=== PATIENT | male | born 1950 | race Caucasian/White ===

== ENCOUNTER 2017-08-10 10:41 | Emergency (ER) | payer MEDICARE ==
[2017-08-10 10:54] VITALS: BP 190/92
--- NOTE | 2017-08-10 11:21 | UC ---
Skin Complaint HPI - HPI Summary HPI Summary: Patient is a 67-year-old male presents to the with a complaint of a bleeding skin growth. He was seen by his primary and an x-ray was obtained to look for any skull involvement. [facility]5 [facility]. However, he states in the shower this morning he noticed more bleeding and when he tried to clean the area, he noticed several maggots on the cloth. He attempted to clean out the maggots, but stated there were too many. Denies any headaches. He is unsure what the growth is from and is to have a biopsy when he will see [facility]. - History of Current Complaint Chief Complaint: UCGeneralIllness Time Seen by Provider: 08/10/17 11:00 Stated Complaint: WOUND CHECK Hx Obtained From: Patient Onset/Duration: Gradual Onset Skin Exposure Onset/Duration: Hours Ago Timing: Constant Onset Severity: Moderate Current Severity: Moderate Pain Intensity: 0 Pain Scale Used: 0-10 Numeric Location: Other - top of head Aggravating Factor(s): Nothing Alleviating Factor(s): Nothing Associated Signs & Symptoms: Positive: Negative Related History: Trauma - possible delayed reaction from trauma vs. skin growth - Allergy/Home Medications Allergies/Adverse Reactions: Allergies Allergy/AdvReac Type Severity Reaction Status Date / Time No Known Allergies Allergy Verified 08/10/17 10:55 Home Medications: Home Medications Atorvastatin* [Lipitor 40 MG*] 40 mg PO DAILY 08/10/17 [History Confirmed ] Review of Systems Constitutional: Negative Skin: Other - large growth to the top of the head Respiratory: Negative Cardiovascular: Negative Motor: Negative Neurovascular: Negative Neurological: Negative Psychological: Negative Is Patient Immunocompromised?: No All Other Systems Reviewed And Are Negative: Yes PMH/Surg Hx/FS Hx/Imm Hx Previously Healthy: Yes - Surgical History Surgical History: Yes Surgery Procedure, Year, and Place: knee r - Family History Known Family History: Positive: Unknown - Social History Occupation: Employed Full-time Lives: With Family Alcohol Use: Occasionally Substance Use Type: None Smoking Status (MU): Former Smoker Physical Exam Triage Information Reviewed: Yes Appearance: Well-Appearing, Well-Nourished Vital Signs: Initial Vital Signs Temp 98.3 F 08/10/17 10:51 Pulse 81 08/10/17 10:51 Resp 16 08/10/17 10:51 BP 190/92 08/10/17 10:51 Pulse Ox 99 08/10/17 10:51 Vital Signs Reviewed: Yes Eye Exam: Normal Eyes: Positive: Conjunctiva Clear Neck exam: Normal Neck: Positive: Supple Respiratory Exam: Normal Respiratory: Positive: Chest non-tender Cardiovascular Exam: Normal Neurological Exam: Normal Psychological Exam: Normal Psychological: Positive: Normal Response To Family Skin Exam: Normal Course/Dx - Course Course Of Treatment: Evaluation of the skin wound reveals a large 5 cm in length growth extending approximately 1.5 cm from the head. Area is bleeding with open area with several maggots inside the wound. I believe he needs further care in patient is sent to the emergency room. I have discussed with Rosa Maria Rucker PA-C at 11:20 AM. - Diagnoses Provider Diagnoses: Infected Growth to the Head Discharge - Sign-Out/Discharge Documenting (check all that apply): Discharge/Admit/Transfer - Discharge Plan Condition: Stable Disposition: HOME Referrals: Edson Roberts MD [Primary Care Provider] - Additional Instructions: Go directly to the emergency room - Billing Disposition and Condition Condition: STABLE Disposition: Home
== END 2017-08-10 11:15 | disposition home or self-care (01) ==
LOC: UCEAST 10:41
DX: L03.811 Cellulitis of head [any part, except face] (principal)
CPT/HCPCS: 99211; G0463

== ENCOUNTER 2017-08-10 11:36 | Day surgery (SDC) | payer MEDICARE ==
--- NOTE | 2017-08-10 12:45 | HP ---
H&P (Free Text) History and Physical: Surgery H & P Asked by Dr. Smith to evaluate a pt. with a lesion on the scalp with maggots. Mr. Haji reports he has had a bump on his head that has been present since last Jan. In the past month or so it has grown a lot. Today he noticed maggots coming out of it and presented to the ER. It doesn't hurt, hasn't been infected, but sometimes bleeds. PMHx: denies Meds: lipitor ROS: neg. SH: former tob: 1/2 ppd x 32 years; occ EtOH, neg IVDA FH: denies PE: general: WDWN elderly male in NAD Vital Signs 08/10/17 08/10/17 08/10/17 11:40 12:06 12:07 Temperature 98.1 F Pulse Rate 74 79 77 Respiratory 18 15 14 Rate Blood Pressure 176/98 178/101 (mmHg) O2 Sat by Pulse 94 94 95 Oximetry HEENT: anicteric sclerae, 4 cm raised lesion on top of head with an open area centrally from which maggots are emerging. It is pedunculated. No signs infection Lungs: clear to ausc heart: reg. 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 Will plan to excise skin lesion from scalp in OR. [facility]
[2017-08-10] MEDS ORDERED: fentaNYL* 50 MCG/ML 2 ML VIAL (100 MCG VIAL) ONE ×2 (15:45→17:02)
[2017-08-10] MEDS ORDERED: Midazolam* 1 MG/ML 2 ML VIAL (2 MG) ONE ×2 (15:46→16:40)
[2017-08-10] MEDS ORDERED: Bupivacaine 0.5% SDV PF* 30ML VIAL ONE (16:02)
[2017-08-10] MEDS ORDERED: Lidocaine 1% MPF wEPI 200,000* 30 ML SDV ONE (16:02)
[2017-08-10] MEDS ORDERED: Propofol* 10 MG/ML 20 ML BTL IV PUSH ONE ×2 (16:35→17:39)
[2017-08-10] MEDS ORDERED: Bacitracin OINTMENT* 0.5% 0.5 oz TUBE ONE (18:08)
--- NOTE | 2017-08-10 18:20 | ED ---
Jose Barajas Angela, scribed for Michael Smith MD on 08/10/17 at 1209 . Skin Complaint - HPI Summary HPI Summary: This pt is a 67 y/o male presenting to [facility] referred from [facility] for surgical intervention for wound on his head. Pt reports he has had a skin growth on the top of his head since January 2017. Pt notes since then it has increased in size. He states has bumped this area of his head a couple of times and has reopened up repeatedly. This morning pt noticed his wound began to bleed more, as he was cleaning his wound he found maggots. He saw his PCP, Dr. Roberts, and had an XR done that showed no intrusion into his skull. He is now scheduled to have a [facility] with [facility] on August 21. - History of Current Complaint Chief Complaint: EDRashSkinAbscess Time Seen by Provider: 08/10/17 11:56 Stated Complaint: HEAD WOUND Hx Obtained From: Patient Onset/Duration: Started Weeks Ago, Still Present, Worse Since - today Skin Exposure Onset/Duration: Weeks Ago Timing: Constant, Lasting Weeks Current Severity: Moderate Pain Intensity: 5 Pain Scale Used: 0-10 Numeric Skin Location: Other: - on top of head Character: Pain, Raised Aggravating Symptom(s): Nothing Alleviating Symptom(s): Nothing Associated Signs & Symptoms: Negative - Allergy/Home Medications Allergies/Adverse Reactions: Allergies Allergy/AdvReac Type Severity Reaction Status Date / Time No Known Allergies Allergy Verified 08/10/17 14:50 PMH/Surg Hx/FS Hx/Imm Hx Endocrine/Hematology History: Denies: Hx Diabetes Cardiovascular History: Denies: Hx Hypertension - Surgical History Surgery Procedure, Year, and Place: knee r Infectious Disease History: No Infectious Disease History: Denies: Traveled Outside the [place] in Last 30 Days - Family History Family History: Father: [place] - Social History Alcohol Use: Occasionally Substance Use Type: Reports: None Smoking Status (MU): Former Smoker Review of Systems Negative: Fever, Chills Eyes: Negative ENT: Negative Negative: Chest Pain Negative: Shortness Of Breath Skin: Other - wound on top of head with maggots All Other Systems Reviewed And Are Negative: Yes Physical Exam - Summary Physical Exam Summary: Appearance: The patient is well-nourished in no acute distress and in no acute pain. Skin: The skin is warm and dry and skin color reflects adequate perfusion. There is a 4 x 5 cm of mass on his crown with a necrotic area at about 7 or 8 o' clock that is full of maggots. HEENT: The head is normocephalic. The pupils are equal and reactive. The conjunctivae are clear and without drainage. Nares are patent and without drainage. Mouth reveals moist mucous membranes and the throat is without erythema and exudate. The external ears are intact. The ear canals are patent and without drainage. The tympanic membranes are intact. Neck: the neck is supple with full range of motion and non-tender. There are no carotid bruits. There is no neck vein distension. Respiratory: Chest is non-tender. Lungs are clear to auscultation and breath sounds are symmetrical and equal. Cardiovascular: Heart is regular rate and rhythm. There is no murmur or rub auscultated. There is no peripheral edema and pulses are symmetrical and equal. Abdomen: The abdomen is soft and non-tender. There are normal bowel sounds heard in all four quadrants and there is no organomegaly palpated. Musculoskeletal: There is no back tenderness noted. Extremities are non-tender with full range of motion. There is good capillary refill. There is no peripheral edema or calf tenderness elicited. Neurological: Patient is alert and oriented to person, place and time. Psychiatric: The patient has an appropriate affect and does not exhibit any anxiety or depression. Triage Information Reviewed: Yes Vital Signs On Initial Exam: Initial Vitals Temp Pulse Resp BP Pulse Ox 98.1 F 74 18 176/98 94 08/10/17 11:40 08/10/17 11:40 08/10/17 11:40 08/10/17 11:40 08/10/17 11:40 Vital Signs Reviewed: Yes Diagnostics - Vital Signs Vital Signs Temp Pulse Resp BP Pulse Ox 08/10/17 11:40 98.1 F 74 18 176/98 94 - Laboratory Lab Statement: Any lab studies that have been ordered have been reviewed, and results considered in the medical decision making process. Course/Dx - Course Course Of Treatment: Mr. Haji clearly has a large mass on his head which likely has a necrotic center that is being fed on by maggots at this time. It is difficult to know how deep this goes and whether he can effectively be cleaned out here in the emergency department. Dr. Willett was contacted came to the department and evaluated him and took him to the OR. - Diagnoses Provider Diagnoses: Mass of scalp - Physician Notifications Discussed Care Of Patient With: Rosmery Willett Time Discussed With Above Provider: 12:05 Instructed by Provider To: Other - I discussed pt care with Dr. Willett, surgeon , who will come see the pt in the ED. Discharge - Sign-Out/Discharge Documenting (check all that apply): Discharge/Admit/Transfer - Admit - Discharge Plan Condition: Stable Disposition: ADMITTED TO [facility] Referrals: Edson Roberts MD [Primary Care Provider] - - Billing Disposition and Condition Condition: STABLE Disposition: Admitted to [facility] The documentation as recorded by the Jose gaming Angela accurately reflects the service I personally performed and the decisions made by me, Michael Smith MD.
[2017-08-10] MEDS ORDERED: Naloxone* 0.4 MG/ML 1 ML VIAL IV PRN (18:49)
--- NOTE | 2017-08-10 18:55 | BRIEFOPN ---
Brief Operative Note - Surgery Procedures: Procedures CLOSED ENDOSCOPIC BIOPSY OF LARGE INTESTINE (11/27/13) COLONOSCOPY (12/16/02) 08/10/17 Op Note (dictated) Pre-op dx: lesion of scalp Post-op dx: same Procedure: excision of lesion of scalp Surgeon: Brennon Asst: Woody Anesth: Local-MAC EBL: 100 cc Complications: none Pt. tolerated procedure well and was transferred to in a stable condition. [facility]
[2017-08-10 19:07] VITALS: BP 170/91
--- NOTE | 2017-08-11 13:17 | OP ---
CC: Dr. Edson Roberts.* DATE OF OPERATION: 08/10/17 - SDS DATE OF : 46 SURGEON: Rosmery Willett MD. MANUFACTURING SR ENGINEER: DO Miller student PRE-OP DIAGNOSIS: Lesion of the scalp. POST-OP DIAGNOSIS: Lesion of the scalp. OPERATIVE PROCEDURE: Excision of lesion of the scalp. INDICATIONS: Mr. Haji is a 67-year-old male who presented to the emergency room with a fungating lesion on the scalp that was noted to be pedunculated and infested with maggots. Plans were made for surgical intervention. DESCRIPTION OF PROCEDURE: He was brought to the operating room, placed on the OR table in a supine position, and given IV sedation. The scalp was prepped and draped in the usual sterile fashion. After infiltrating with local anesthetic, an incision was made to amputate the fungating portion of the lesion , this left an approximately 2 cm defect in the scalp. The fungating portion of the lesion was 4 cm in diameter and 2 cm high. The residual scalp lesion was then excised with an elliptical sigmoidal incision and then subcutaneous tissue was divided with electrocautery to remove the skin and the defect down to the level of the skull. The skin was then undermined and attempts were made to close the skin with a combination of Vicryl and Prolene; however, it did not close in the center portion, so these stitches were removed and additional stitches were placed in a way that allowed better closure. All the stitches were of Prolene and were primarily mattress stitches. All sponge and instrument counts were correct. The patient tolerated the procedure well and was transferred to recovery in a stable condition. The dressing consisted of antibiotic ointment. [id number]/[facility] #: [id number] MTDLillian
== END 2017-08-10 19:14 | disposition home or self-care (01) ==
LOC: ED 11:36 → OR 18:42
PROVIDERS: ATTEND Surgery
DX: C43.4 Malignant melanoma of scalp and neck (principal); B87.1 Wound myiasis; Z87.891 Personal history of nicotine dependence; E78.5 Hyperlipidemia, unspecified; L03.811 Cellulitis of head [any part, except face]
CPT/HCPCS: 88305; 88341; 88342; 99283; A9270-GY; J2001; J2250; J2704; J3010

== ENCOUNTER 2017-09-14 10:28 | Day surgery (SDC) | payer MEDICARE ==
[~2017-09-14 10:28] MED LIST: Buffered Lidocaine 0.9% SYRIN* 5 ML/SYR SYRINGE INTRADERM ONE; Dexamethasone IV* 4 MG/ML 1 ML (4 MG) IV SLOW PU ONE; Famotidine IV* 10 MG/ML 2 ML (20 mg) IV ONE
[2017-09-14] MEDS ORDERED: Heparin VIAL(*) 5000 UNITS/ML VIAL (FIVE THOUSAND) ONE (10:29)
[2017-09-14] MEDS ORDERED: Famotidine IV* 10 MG/ML 2 ML (20 mg) ONE (10:29)
[2017-09-14] MEDS ORDERED: Dexamethasone IV* 4 MG/ML 1 ML (4 MG) ONE (10:29)
[2017-09-14] MEDS ORDERED: ceFAZolin 2 GM PREMIX (*) 2 GM/50 ML BAG IVPB ONE (10:29)
[2017-09-14] MEDS ORDERED: fentaNYL* 50 MCG/ML 2 ML VIAL (100 MCG VIAL) ONE ×2 (10:57→12:23)
[2017-09-14] MEDS ORDERED: Propofol* 10 MG/ML 20 ML BTL IV PUSH ONE (10:57)
[2017-09-14] MEDS ORDERED: Midazolam* 1 MG/ML 5 ML VIAL (5 MG) ONE (10:57)
[2017-09-14] MEDS ORDERED: Ondansetron INJ* 2 MG/ML VIAL ONE (10:57)
[2017-09-14] MEDS ORDERED: Naloxone* 0.4 MG/ML 1 ML VIAL IV PRN (11:35)
[2017-09-14] MEDS ORDERED: oxyCODONE/Acetamin 5/325 MG* TAB PO PRN (11:35)
[2017-09-14] MEDS ORDERED: Ondansetron INJ* 2 MG/ML VIAL IV PRN (11:35)
[2017-09-14] MEDS ORDERED: fentaNYL* 50 MCG/ML 2 ML VIAL (100 MCG VIAL) IV PRN (11:35)
[2017-09-14] MEDS ORDERED: DiMENhydriNATE IV* 50 MG/ML VIAL IV PUSH PRN (11:35)
[2017-09-14] MEDS ORDERED: Atracurium* 10 MG/ML 10 ML VIAL ONE (11:39)
[2017-09-14] MEDS ORDERED: Ketorolac INJ* 30 MG/ML 1 ML VIAL ONE (11:39)
[2017-09-14] MEDS ORDERED: Methylene Blue 0.5 %* 50 MG/10 ML AMP IV ONE (11:50)
[2017-09-14] MEDS ORDERED: Lidocain 1% EPI 1:100,000 * 30 ML MDV ONE (11:50)
[2017-09-14] MEDS ORDERED: Petrolatum 5 GM* 5 GM PACKET ONE (11:50)
[2017-09-14] MEDS ORDERED: Bupivacaine 0.25% SDV PF* 10 ML VIAL INJ ONE (11:51)
[2017-09-14] MEDS ORDERED: ceFAZolin 1 GM VIAL(*) ONE (13:02)
[2017-09-14] MEDS ORDERED: Mineral Oil Sterile, TOPICAL* 25 ML BTL ONE (13:18)
[2017-09-14 15:46] VITALS: BP 123/70
--- NOTE | 2017-09-15 04:15 | OP ---
CC: Dr. Abrahan Diaz; Dr. Rosmery Willett; Dr. Edson Roberts; [facility] * DATE OF OPERATION: 09/14/17 - [facility] DATE OF : 46 SURGEON: Tereso Higgins MD ANESTHESIOLOGIST: Aron Ruiz MD ANESTHESIA: General. PRE-OP DIAGNOSIS: Melanoma, scalp. POST-OP DIAGNOSIS: Melanoma, scalp. OPERATIVE PROCEDURE: Wide excision melanoma scalp and reconstruction with two scalp rotation advancement flaps and split thickness skin graft to a portion of the anterior flap donor site. SPECIMENS: Wide excision of melanoma scalp, suture de anda 12 o'clock anterior margin. DRAINS: None. COMPLICATIONS: None. INDICATION FOR OPERATION: The patient is a 67-year-old white male, who presented to [facility] emergency department with an ulcerated mass on his scalp, infested with maggots. Dr. Willett narrowly excised the mass on and partially closed the wound. The pathology report read malignant melanoma, nodular type, Breslow thickness 33 mm, Yobani's level V, ulceration present, mitotic rate 13 mm sq. The melanoma was noted to extend to 1 mm from the deep margin, 4 mm from the nearest lateral scalp margin. He developed the postoperative wound infection following that procedure with Staph aureus and group B strep which was treated with suture removal and debridement, topical mupirocin and initially p.o. doxycycline subsequently followed by a course of p.o. Keflex after sensitivities were obtained. He presents now for wide excision of the melanoma to achieve 2 cm margins for local control. Preoperative examination of the vertex scalp area demonstrated a 4 x 3.5 cm open wound with exposed bone centrally measuring 3.5 x 2.0 cm. Remainder of the wound appeared clean and granulating and there were some patchy thin areas of granulation tissue developing on the area of exposed bone. The patient had no preauricular or cervical adenopathy noted preoperatively. DESCRIPTION OF PROCEDURE: The patient was brought to the operating room and placed in the supine position. General anesthesia was induced by Dr. Ruiz. The left lateral thigh area was prepped with ChloraPrep solution for skin graft donor site. The scalp hair was clipped and then the scalp prepped with Betadine solution. The areas were then draped sterilely. The planned area for surgical excision on the vertex scalp was marked with the surgical marking pen, taking an additional 1.6 cm margin which together with the histologic 4 mm margin was expected to obtain greater than 2 cm clinical margins around the melanoma. This resulted in an elliptical shaped area measuring 7.6 x 6.1 cm. The area was infiltrated with 0.0625% Marcaine, 0.25% lidocaine with epinephrine 1:400,000 solution. Incision was then made excising the full thickness scalp, including periosteum, since the deep margin was so close on the previous excision and since there was an exposed cranial defect in the center of the previous excision site, with recent infection. The full- thickness scalp and periosteum were elevated using periosteal elevators, including the area of partial granulation over the exposed bone on the central portion of the wound. Bone was further scraped with periosteal elevators to debride it. Specimen was marked at the 12 o'clock anterior position with suture and was sent in formalin for routine pathologic study. The wound was then irrigated with a liter of saline containing 1 g of Ancef using pulsatile jet lavage. Wound appeared very clean with no clinically apparent necrotic bone and no obvious purulence or clinical evidence of osteomyelitis noted. The excision defect was then closed with 2 large rotation advancement scalp flaps with a right anterior based flap and a left posteriorly based flap. The planned incision lines were infiltrated with the local anesthetic solution and the incisions made and the flaps raised at the subgaleal level leaving the pericranium intact. Hemostasis was maintained throughout the procedure with fine point bipolar electrocautery. The total area of dissection was 300 square cm. Flaps were then advanced centrally to cover the excision defect and obtain good vascularized soft tissue coverage over the exposed bony defect. Flaps were inset and the flap donor sites closed with buried galeal sutures of 2-0 and 3-0 Vicryl, and the skin closed with running 3-0 Prolene, except for the posterior donor site which was closed with Vicryl in the galea but joana in the skin. The posterior flap donor site was able to be closed completely under low tension. There was a residual 9 x 2.9 cm elliptical shape area of the right anterior flap donor site that could not be closed directly without undue tension, and therefore, was closed with a split thickness skin graft from the left lateral thigh. The open area of the scalp flap donor site had good vascularized intact pericranium overlying the bone. The skin graft was harvested from the left lateral thigh using the Linksify powered dermatome set to a depth of 12 thousandths of an inch, after first infiltrating the donor site with the local anesthetic solution. An excellent quality graft was obtained. The graft was applied to the scalp donor side area defect and suture in placed with interrupted sutures of 4-0 silk, with the ends left long for tie-over bolster dressing. Running sutures of 4-0 Vicryl Rapide were also placed. Skin graft recipient site was then dressed with Xeroform and then cotton soaked to mineral oil and saline was applied and then the silk sutures tied down for a tie -over bolster dressing. The skin graft donor site in left thigh was dressed with Tegaderm and then ABD pads and paper tape. The scalp flaps were dressed with Xeroform gauze, fluff gauze and then circumferential head wrap dressing. The patient tolerated the procedure well. There were no complications. All counts were reported as correct at the end of procedure. The patient was taken to the recovery area in stable postoperative condition. [id number]/[facility] #: [id number]
== END 2017-09-14 16:20 | disposition home or self-care (01) ==
LOC: OR 10:28
PROVIDERS: ATTEND Plastic Surgery
DX: C43.4 Malignant melanoma of scalp and neck (principal); M06.9 Rheumatoid arthritis, unspecified; I10 Essential (primary) hypertension; E78.00 Pure hypercholesterolemia, unspecified
CPT/HCPCS: 88305; A9270-GY; J0690; J1100; J1644; J1885; J2250; J2405; J2704; J3010; J3490

== ENCOUNTER 2018-08-09 18:53 | Emergency (ER) | payer MEDICARE ==
[2018-08-09 19:15] VITALS: BP 159/73
--- NOTE | 2018-08-09 19:42 | UC ---
Back Pain HPI - HPI Summary HPI Summary: 3 day history of back pain following a strain. He has an ongoing building project, and was lowering a bulky ladder down several levels. [place] a tweak in his back as he extended to lower the ladder a level. No leg weakness or paresthesias, no incontinence. On chemo for metastatic melanoma. - History of Current Complaint Chief Complaint: UCBackPain Stated Complaint: BACK PAIN Time Seen by Provider: 08/09/18 19:27 Hx Obtained From: Patient, Family/Fisheries Enforcement Officer - here with his . Onset/Duration: Sudden Onset, Lasting Days - 3 Timing: Intermittent, Lasting Hours Severity Initially: Moderate Severity Currently: Moderate Pain Intensity: 5 Character: Aching, Spasmodic Aggravating Factor(s): Movement, Lifting, Bending Alleviating Factor(s): Rest, OTC Meds - has used ibuprofen and acetaminophen, each only one dose. Associated Signs And Symptoms: Positive: Negative - Risk Factors AAA Risk Factors: Negative TAD Risk Factors: Negative Cauda Equina Risk Factors: Negative Epidural Abscess Risk Factors: Negative - Allergies/Home Medications Allergies/Adverse Reactions: Allergies Allergy/AdvReac Type Severity Reaction Status Date / Time No Known Allergies Allergy Verified 08/09/18 19:15 Home Medications: Home Medications Ibuprofen TAB* [Advil TAB*] 400 mg PO ONCE PRN 08/09/18 [History Confirmed 08/09] PMH/Surg Hx/FS Hx/Imm Hx Cardiovascular History: Hypertension, Other - elevated cholesterol Cancer History: Other - metastatic melanoma. - Surgical History Surgical History: Yes Surgery Procedure, Year, and Place: s rt partial quad tear repair; 09/09/17 - melanoma removed from scalp; 09/14/17-REMOVED MORE TISSUE 08/2017 GAMMA KNIFE - Family History Known Family History: Positive: Unknown Family History: Father: Colon [place] - Social History Occupation: Retired Lives: With Family Alcohol Use: Occasionally Alcohol Amount: 2 CANS OF BEER/WEEK Substance Use Type: None Smoking Status (MU): Former Smoker Type: Cigarettes Amount Used/How Often: 1/2 PPD FOR 32 YRS Length of Time of Smoking/Using Tobacco: 32 YRS Have You Smoked in the Last Year: No When Did the Patient Quit Smoking/Using Tobacco: 2002 Review of Systems All Other Systems Reviewed And Are Negative: Yes Constitutional: Positive: Negative Motor: Positive: Decreased ROM. Negative: Weakness Neurovascular: Negative: Decreased Sensation Neurological: Positive: Negative. Negative: Headache Physical Exam Appearance: Pain Distress - mild to moderate. Vital Signs: Initial Vital Signs Temp 99 F 08/09/18 19:11 Pulse 83 08/09/18 19:11 Resp 16 08/09/18 19:11 BP 159/73 08/09/18 19:11 Pulse Ox 94 08/09/18 19:11 Neck: Positive: Supple, Nontender, No Lymphadenopathy Respiratory: Positive: Lungs clear, Normal breath sounds Cardiovascular: Positive: RRR, Murmur:Sys:Grade _?_/ - 2--? soft murmur mid left sternal border Abdominal Exam: Normal Musculoskeletal Exam: Other - tenderness upper gluteal areas. Musculoskeletal: Positive: Strength Intact, ROM Intact - full rom in lumbar spine, has pain with lateral bending., No Edema, Other: - SLR normal, normal hip rom. Neurological: Positive: Alert, Muscle Tone Normal Back Pain Course/Dx - Course Course Of Treatment: muscle relaxants, regular use of ibuprofen or acetaminophen. - Differential Dx/Diagnosis Differential Diagnosis/HQI/PQRI: Herniated Disc, Strain Provider Diagnosis: Lumbago Discharge - Sign-Out/Discharge Documenting (check all that apply): Patient Departure All imaging exams completed and their final reports reviewed: No Studies - Discharge Plan Condition: Stable Disposition: HOME Prescriptions: Cyclobenzaprine TAB* [Flexeril 10 MG TAB*] 10 mg PO BID PRN #20 tab PRN Reason: Spasms Patient Education Materials: Low Back Strain (ED) Referrals: Edson Roberts MD [Primary Care Provider] - Additional Instructions: Use muscle relaxants for relief of spasm, being aware that this can cause sedation. Ensure that you are stretching your low back. Use acetaminophen 1000mg three times daily as needed for relief of pain. Use ibuprofen with caution given your history of elevated blood pressure. Follow up with Dr. Roberts if pain persists beyond 2 weeks. - Billing Disposition and Condition Condition: STABLE Disposition: Home
== END 2018-08-09 20:15 | disposition home or self-care (01) ==
LOC: UCEAST 18:53
DX: M54.5 Low back pain (principal); I10 Essential (primary) hypertension; C79.9 Secondary malignant neoplasm of unspecified site; Z87.891 Personal history of nicotine dependence
CPT/HCPCS: 99212; G0463

== ENCOUNTER 2020-03-16 10:44 | Inpatient (IN) ==
[2020-03-16] MEDS ORDERED: NS 0.9% 1000 ml BAG 1,000 ML IV ONE ×2 (11:54→12:11)
[2020-03-16] MEDS ORDERED: Ondansetron 4 mg VIAL 2 MG/ML 2 ml VIAL IV ONE (12:21)
[2020-03-16] MEDS ORDERED: Ondansetron 4 mg VIAL 2 MG/ML 2 ml VIAL ONE (12:25)
[2020-03-16 12:36] LABS: ABS Basophils 0.1 10^3/ul (0-0.2); ABS Lymphocytes 0.6 10^3/ul (1.0-4.8); ABS Monocytes 0.8 10^3/ul (0-0.8); ABS Neutrophils 5.8 10^3/ul (1.5-7.7); Eosinophil % 0.6 %; Hematocrit 34 % (42-52); Lymphocyte % 8.3 %; Mean Corpuscular HGB Conc 32 g/dL (31-36); Mean Corpuscular Hemoglobin 26 pg (27-31); Mean Corpuscular Volume 80 fL (80-94); Mean Platelet Volume 6.4 fL (7.4-10.4); Platelet Count 306 10^3/uL (150-450); Red Blood Count 4.24 10^6 /uL (4.18-5.48); Red Cell Distribution Width 18 % (10-15); White Blood Count 7.4 10^3/uL (3.5-10.8)
[2020-03-16 12:53] LABS: Albumin 3.8 g/dL (3.2-5.2); Albumin/Globulin Ratio 0.9 (1-3); BUN/Creatinine Ratio 19.5 (8-20); Calcium 10.2 mg/dL (8.6-10.3); EGFR African American 104.7 (>60); EGFR Non-African American 86.5 (>60); Globulin 4.2 g/dL (2-4); Total Bilirubin 0.5 mg/dL (0.2-1.0)
[2020-03-16] MEDS ORDERED: Iohexol 300 (CONTRAST) 10 ML SDV IV ONE (13:50)
[2020-03-16] MEDS: NS 0.9% 1000 ml BAG 1,000 ML IV SCH (19:01)
[2020-03-16] MEDS: Morphine 2 MG/ML SYRINGE IV PRN ×2 (20:02→23:26)
[2020-03-16] MEDS: Ondansetron 4 mg VIAL 2 MG/ML 2 ml VIAL IV PRN (20:03)
[2020-03-16] MEDS: Enoxaparin 40 MG/0.4 ML SYR SUBCUT SCH (20:05)
[2020-03-16] MEDS: levETIRAcetam 500 MG IVPREMIX 500 MG/100 ML BAG IV SCH (20:19)
[2020-03-17] MEDS: Morphine 2 MG/ML SYRINGE IV PRN ×10 (01:39→23:26)
[2020-03-17] MEDS: Levothyroxine 100 MCG/5 ML VIAL IV SCH (05:59)
[2020-03-17 07:15] LABS: ABS Basophils 0.1 10^3/ul (0-0.2); ABS Lymphocytes 0.4 10^3/ul (1.0-4.8); ABS Monocytes 0.7 10^3/ul (0-0.8); Eosinophil % 0.7 %; Hematocrit 29 % (42-52); Hemoglobin 9.7 g/dL (14.0-18.0); Lymphocyte % 6.2 %; Mean Corpuscular HGB Conc 33 g/dL (31-36); Mean Corpuscular Hemoglobin 27 pg (27-31); Mean Corpuscular Volume 80 fL (80-94); Mean Platelet Volume 6.1 fL (7.4-10.4); Platelet Count 266 10^3/uL (150-450); Red Blood Count 3.66 10^6 /uL (4.18-5.48); Red Cell Distribution Width 17 % (10-15); White Blood Count 7.3 10^3/uL (3.5-10.8)
[2020-03-17 07:30] LABS: Albumin 3.5 g/dL (3.2-5.2); Calcium 8.7 mg/dL (8.6-10.3); EGFR African American 134.5 (>60); EGFR Non-African American 111.2 (>60); Globulin 3.5 g/dL (2-4); Potassium 3.6 mmol/L (3.5-5.0); Total Bilirubin 0.4 mg/dL (0.2-1.0)
[2020-03-17] MEDS: levETIRAcetam 500 MG IVPREMIX 500 MG/100 ML BAG IV SCH ×2 (08:02→21:36)
[2020-03-17] MEDS: Ondansetron 4 mg VIAL 2 MG/ML 2 ml VIAL IV PRN ×4 (10:54→23:26)
[2020-03-17] MEDS: NS 0.9% 1000 ml BAG 1,000 ML IV SCH (14:29)
[2020-03-17] MEDS: Enoxaparin 40 MG/0.4 ML SYR SUBCUT SCH (21:38)
[2020-03-18] MEDS: Morphine 2 MG/ML SYRINGE IV PRN ×9 (01:25→23:31)
[2020-03-18] MEDS: Ondansetron 4 mg VIAL 2 MG/ML 2 ml VIAL IV PRN (03:38)
[2020-03-18] MEDS: Levothyroxine 100 MCG/5 ML VIAL IV SCH (05:36)
[2020-03-18 07:48] LABS: ABS Lymphocytes 0.4 10^3/ul (1.0-4.8); ABS Monocytes 0.6 10^3/ul (0-0.8); ABS Neutrophils 6.1 10^3/ul (1.5-7.7); Eosinophil % 0.4 %; Hematocrit 30 % (42-52); Hemoglobin 9.7 g/dL (14.0-18.0); Lymphocyte % 5.9 %; Mean Corpuscular HGB Conc 32 g/dL (31-36); Mean Corpuscular Hemoglobin 26 pg (27-31); Mean Corpuscular Volume 81 fL (80-94); Mean Platelet Volume 6.4 fL (7.4-10.4); Platelet Count 291 10^3/uL (150-450); Red Blood Count 3.72 10^6 /uL (4.18-5.48); Red Cell Distribution Width 17 % (10-15); White Blood Count 7.2 10^3/uL (3.5-10.8)
[2020-03-18 08:11] LABS: Albumin 3.6 g/dL (3.2-5.2); Calcium 8.6 mg/dL (8.6-10.3); EGFR African American 149.2 (>60); EGFR Non-African American 123.3 (>60); Globulin 3.7 g/dL (2-4); Potassium 3.8 mmol/L (3.5-5.0); Total Bilirubin 0.4 mg/dL (0.2-1.0); Total Protein 7.3 g/dL (6.4-8.9)
[2020-03-18] MEDS: levETIRAcetam 500 MG IVPREMIX 500 MG/100 ML BAG IV SCH ×2 (08:57→21:22)
[2020-03-18] MEDS ORDERED: fentaNYL 100 mcg/2 ml 50 MCG/ML VIAL ONE (10:40)
[2020-03-18] MEDS ORDERED: Midazolam 10 mg/10 ml VIAL 1 mg/ml 10 ml VIAL (10 mg) ONE (10:40)
[2020-03-18] MEDS ORDERED: TPN 24 HR with Dextrose 50% Water 500 ML, Amino Acid Infusion 10% 850 ML, Sterile Water... CENTR SCH (17:00)
[2020-03-18] MEDS: Enoxaparin 40 MG/0.4 ML SYR SUBCUT SCH (21:27)
[2020-03-19] MEDS: Morphine 2 MG/ML SYRINGE IV PRN ×5 (01:23→12:03)
[2020-03-19] MEDS: Levothyroxine 100 MCG/5 ML VIAL IV SCH (05:44)
[2020-03-19 06:20] LABS: Albumin 3.5 g/dL (3.2-5.2); BUN/Creatinine Ratio 29.6 (8-20); Calcium 8.7 mg/dL (8.6-10.3); EGFR African American 181.5 (>60); Globulin 3.4 g/dL (2-4); Magnesium 2.2 mg/dL (1.9-2.7); Phosphorus 1.1 mg/dL (2.5-5.0); Potassium 3.3 mmol/L (3.5-5.0); Total Bilirubin 0.3 mg/dL (0.2-1.0); Total Protein 6.9 g/dL (6.4-8.9)
[2020-03-19 07:56] VITALS: BP 138/70
[2020-03-19] MEDS: levETIRAcetam 500 MG IVPREMIX 500 MG/100 ML BAG IV SCH (09:10)
[2020-03-19] MEDS: NS 0.9% 1000 ml BAG 1,000 ML IV SCH (09:19)
[2020-03-19] MEDS ORDERED: TPN 24 HR with Dextrose 50% Water 500 ML, Amino Acid Infusion 10% 850 ML, Sterile Water... CENTR SCH (17:01)
== END 2020-03-19 13:45 | disposition short-term general hospital (02) | DRG 380 ==
LOC: ED 10:44 → MEDTELE 15:09
PROVIDERS: ADMIT Hospitalist; ATTEND Internal Medicine Hematology & Oncology